=== PATIENT | male | born 1965 | race American Indian/Alaskan Native ===

== ENCOUNTER 2020-12-17 09:45 | Emergency (ER) | payer SELFPAY ==
--- NOTE | 2020-12-17 12:45 | Emergency Department Report ---
ED General Adult HPI - General Chief complaint: Abdominal Pain Stated complaint: ABD PAIN Time Seen by Provider: 12/17/20 12:35 Source: patient Mode of arrival: Ambulatory Limitations: No Limitations - History of Present Illness Initial comments: 55-year-old male patient with history of tobacco use and alcohol use presents to the emergency department with complaints of periumbilical abdominal pain for 3 weeks. Patient describes the pain as "cramping," intermittent, no identifiable exacerbating or relieving factors. Patient states that his appetite has been very poor. He endorses a 15 to 20 pound unintentional weight loss over the last 2 months. Patient has never undergone colonoscopy. He is not currently under the care of a primary care provider. He took a laxative earlier this week with limited relief. No prior abdominal surgeries. Denies fever, chills, nausea, vomiting, diarrhea, constipation, urinary symptoms. Denies other complaints at this time. - Related Data Previous Rx's Medication Instructions Recorded Last Taken Type Dicyclomine [Bentyl] 20 mg PO QID #30 tablet 12/17/20 Unknown Rx Allergies Allergy/AdvReac Type Severity Reaction Status Date / Time No Known Allergies Allergy Unverified 12/17/20 09:50 ED Review of Systems ROS: Stated complaint: ABD PAIN Other details as noted in HPI Other: GENERAL: Negative for fever, chills, weight change, anorexia, fatigue. ENT: Negative for ear pain, difficulty hearing, sore throat, nasal congestion, epistaxis. CARDIOVASCULAR: Negative for chest pain, palpitations, lower extremity swelling. PULMONARY: Negative for cough, dyspnea, wheezing, orthopnea, cyanosis. GASTROINTESTINAL: Positive for abdominal pain. MUSCULOSKELETAL: Negative for joint pain, joint swelling, myalgias, back pain, neck pain. NEUROLOGICAL: Negative for headache, seizure, syncope, paresthesias, weakness. INTEGUMENTARY: Negative for erythema, rash, diaphoresis, laceration, ecchymosis. HEMATOLOGICAL: Negative for hemoptysis, hematemesis, hematochezia, hematuria. PSYCHIATRIC: Negative for hallucinations, suicidal ideation, homicidal ideation, anxiety, depression. ED Past Medical Hx - Past Medical History Previous Medical History?: No - Surgical History Past Surgical History?: No - Medications Home Medications: Home Medications Medication Instructions Recorded Confirmed Last Taken Type Dicyclomine [Bentyl] 20 mg PO QID #30 tablet 12/17/20 Unknown Rx ED Physical Exam - General Limitations: No Limitations - Other Other exam information: General: Awake and alert. No acute distress. Head: Atraumatic, normocephalic. Eyes: EOMI. Pupils are equal and round. Normal sclera and conjunctiva. ENT: Oral mucosa is moist. Normal pharyngeal exam. Neck: Supple. No lymphadenopathy. Pulmonary: No respiratory distress. Clear to auscultation bilaterally. Cardiac: Regular rate and rhythm. Pulses are palpable and equal bilaterally. No lower extremity cyanosis or edema. Skin: Warm and dry. No rashes. Abdomen: Soft, non-tender, non-protuberant. Mild periumbilical tenderness without guarding, rigidity, or rebound. Bowel sounds are normal. No organomegaly or masses noted. Back: Normal alignment. No CVA tenderness. Extremities: Symmetrical. Full range of motion intact. Neurological: Alert and oriented, appropriately interactive, no focal deficits. Psych: Cooperative. Appropriate mood and affect. Speech is evenly metered. Thoughts are logically construed. ED Course Vital Signs 12/17/20 12/17/20 09:52 16:14 Temperature 98.4 F 98.5 F Pulse Rate 74 62 Respiratory 20 20 Rate Blood Pressure 147/84 189/87 O2 Sat by Pulse 100 100 Oximetry ED Medical Decision Making - Lab Data Result diagrams: 12/17/20 12:54 12/17/20 12:54 - Radiology Data [facility] [address] [place] [address] Cat Scan Report Signed Patient: RENETTA HANSEN MR#: [id number] : 1965 Acct:[id number] Age/Sex: 55 / M ADM Date: 12/17/20 Loc: ED Attending Dr: Ordering Physician: SANCHEZ HUERTA Date of Service: 12/17/20 Procedure(s): CT abdomen pelvis w con Accession Number(s): [id number] cc: SANCHEZ HUERTA CT ABDOMEN AND PELVIS WITH CONTRAST INDICATION: Abdominal pain, unintentional weight loss CONTRAST: 100 cc Omnipaque 300 IV COMPARISON: None available. All CT scans at this location are performed using CT dose reduction for ALARA by means of automated exposure control. FINDINGS: Lung bases are clear. No significant focal bony lesions are seen. No lymphadenopathy is noted. Liver shows mild fatty infiltration but is not significantly enlarged. No focal lesions are s een. I see no abnormalities of the spleen, adrenals, pancreas, kidneys, or bile ducts. Gallbladder is contracted but shows no obvious abnormalities. No evidence of bowel obstruction is seen. No bowel lesions are obvious. No focal inflammatory changes are seen. Appendix is clearly visualized. No masses are seen. IMPRESSION: No acute abnormalities are seen. No obvious neoplastic lesions are noted. Signer Name: Christopher Love MD Signed: 12/17/2020 3:23 PM Workstation Name: [id number] Transcribed By: ДМИТРИЙ Dictated By: Christopher Love MD Electronically Authenticated By: Christopher Love MD Signed Date/Time: 12/17/20 1523 DD/ 1518 TD/TT: - Medical Decision Making Differential diagnosis including but not limited to: abdominal aortic aneurysm/dissection, pancreatitis, cholecystitis, appendicitis, bowel obstruction, bowel perforation, diverticulitis, colon cancer On reevaluation, patient remains stable. States his abdominal pain has improved without intervention. Repeat abdominal exam is benign. He is afebrile, hemodynamically stable, tolerating p.o. without difficulty. Labs are unremarkable. CT of the abdomen/pelvis obtained due to patient's advanced age i n the setting of unintentional weight loss; imaging showed no acute process. Etiology of patient's ongoing abdominal pain remains unclear; no clinical indication for further diagnostic work-up on an emergent basis at this time. Patient will be discharged home with appropriate analgesics and referral to both primary care provider and gastroenterology. Emphasized the importance of scheduling outpatient colonoscopy, as patient has never undergone colon cancer screening. Patient expressed understanding and is agreeable to plan of care. Strict return precautions provided. Repeat exam is unremarkable and benign. History, exam, diagnostic testing, and current condition do not suggest worrisome pathology to warrant further testing, continued ED treatment, admission, or surgical evaluation at this point. Given the low probability of a significant medical illness, it would be more likely to result in harm than benefit to perform further testing at this stage. Discussed findings, presumptive diagnosis, need for follow-up and specific signs/symptoms that should prompt immediate return to the emergency department. Instructions were explained in detail to the patient in addition to giving written discharge information. Patient expressed understanding and was given the opportunity to ask questions, all of which were satisfactorily answered prior to discharge home. Critical care attestation.: If time is entered above; I have spent that time in minutes in the direct care of this critically ill patient, excluding procedure time. ED Disposition Clinical Impression: Nonspecific abdominal pain Disposition: DC- TO HOME OR SELFCARE Is pt being admited?: No Does the pt Need Aspirin: No Condition: Stable Instructions: Abdominal Pain, Adult, [place] Additional Instructions: Take Bentyl as directed for intestinal discomfort. Take Tylenol every 4 hours and Motrin every 8 hours as needed for pain. Rest. Drink plenty of fluids. Follow-up with primary care provider this week. Call tomorrow to schedule an appointment. See referral information below. Follow-up with gastroenterology for outpatient colonoscopy. Call tomorrow to schedule an appointment. See referral information below. Return to the emergency department immediately for new or worsening symptoms. Prescriptions: Dicyclomine [Bentyl] 20 mg PO QID #30 tablet Referrals: ASHLEY RECIO MD [Staff Physician] - 3-5 Days [facility] [Provider Group] - 3-5 Days [facility] [Provider Group] - 3-5 Days Forms: Work/School Release Form(ED) Time of Disposition: 15:48
[2020-12-17 13:33] LABS: Basophils # (Auto) 0.1 K/mm3 (0.0-0.1); Basophils % (Auto) 1.2 % (0.0-1.8); Eosinophils # (Auto) 0.1 K/mm3 (0.0-0.4); Eosinophils % (Auto) 1.7 % (0.0-4.3); Hematocrit 42.1 % (35.5-45.6); Hemoglobin 14.1 gm/dl (11.8-15.2); Lymphocytes # (Auto) 2.6 K/mm3 (1.2-5.4); Lymphocytes % (Auto) 43.7 % (13.4-35.0); Mean Corpuscular HGB Conc 34 % (32-34); Mean Corpuscular Volume 91 fl (84-94); Monocytes # (Auto) 0.5 K/mm3 (0.0-0.8); Monocytes % (Auto) 9.1 % (0.0-7.3); Platelet Count 216 K/mm3 (140-440); Red Blood Count 4.63 M/mm3 (3.65-5.03); Red Cell Distribution Width 13.8 % (13.2-15.2)
[2020-12-17 13:58] LABS: Alanine Aminotransferase 8 units/L (7-56); Albumin 3.9 g/dL (3.9-5); BUN/Creatinine Ratio 11; Blood Urea Nitrogen 11 mg/dL (9-20); Calcium 9.4 mg/dL (8.4-10.2); Hemolysis Index 8
--- NOTE | 2020-12-17 15:28 | Cat Scan Report ---
CT ABDOMEN AND PELVIS WITH CONTRAST INDICATION: Abdominal pain, unintentional weight loss CONTRAST: 100 cc Omnipaque 300 IV COMPARISON: None available. All CT scans at this location are performed using CT dose reduction for ALARA by means of automated e xposure control. FINDINGS: Lung bases are clear. No significant focal bony lesions are seen. No lymphadenopathy is not ed. Liver shows mild fatty infiltration but is not significantly enlarged. No focal lesions are seen. I see no abnormalities of the spleen, adrenals, pancreas, kidneys, or bile ducts. Gallbladder is con tracted but shows no obvious abnormalities. No evidence of bowel obstruction is seen. No bowel lesion s are obvious. No focal inflammatory changes are seen. Appendix is clearly visualized. No masses are seen. IMPRESSION: No acute abnormalities are seen. No obvious neoplastic lesions are noted. Signer Name: Christopher Love MD Signed: 12/17/2020 3:23 PM Workstation Name: [id number]
[2020-12-17 16:16] VITALS: BP 189/87
== END 2020-12-17 16:21 | disposition home or self-care (01) ==
LOC: ED 09:45
DX: R10.33 Periumbilical pain (principal); Z79.899 Other long term (current) drug therapy
CPT/HCPCS: 36415; 74177; 80053; 83690; 83735; 85025; 99284; Q9967

== ENCOUNTER 2021-01-21 09:01 | Emergency (ER) | payer SELFPAY ==
[2021-01-21 09:07] VITALS: BP 142/81
--- NOTE | 2021-01-21 10:22 | Emergency Department Report ---
ED Abdominal Pain HPI - General Chief Complaint: Abdominal Pain Stated Complaint: ABD PAIN Time Seen by Provider: 01/21/21 09:51 Source: patient Mode of arrival: Ambulatory Limitations: No Limitations - History of Present Illness Initial Comments: Chief complaint: Abdominal pain HPI: This is a 55-year-old male with history of tobacco and alcohol use who presents with abdominal pain for 2 to 3 months. Patient has a "crunchy abdominal pain right upper quadrant left upper quadrant and diffuse. Worse with beer intake. Worse with certain foods. He has had intermittent diarrhea constipation abdominal distention. He feels well this morning. He avoided alcohol last night. Patient was prescribed Bentyl on previous ED visit last month for similar symptoms. The Bentyl twice daily for 5 days did provide mild relief. He does not have a primary physician. I reviewed CT scan report obtained on 12/17/2020, no acute abnormality seen. MD Complaint: abdominal pain -: Gradual, month(s) (2 to 3 months prior) Location: diffuse Radiation: none Migration to: no migration Severity: mild Severity scale (0 -10): 4 Quality: cramping, sharp Consistency: intermittent Improves With: other (Alcohol avoidance) Worsens With: eating (Eating and beer intake) Associated Symptoms: other (Constipation diarrhea abdominal distention) - Related Data Previous Rx's Medication Instructions Recorded Last Taken Type Dicyclomine [Bentyl] 20 mg PO QID #30 tablet 12/17/20 Unknown Rx Dicyclomine [Bentyl] 20 mg PO QID #120 tablet 01/21/21 Unknown Rx Omeprazole 40 mg PO DAILY #30 capsule. 01/21/21 Unknown Rx Allergies Allergy/AdvReac Type Severity Reaction Status Date / Time No Known Allergies Allergy Unverified 12/17/20 09:50 ED Review of Systems ROS: Stated complaint: ABD PAIN Other details as noted in HPI Comment: All other systems reviewed and negative Respiratory: denies: cough Cardiovascular: denies: palpitations Gastrointestinal: abdominal pain, diarrhea, constipation ED Past Medical Hx - Past Medical History Previous Medical History?: No - Surgical History Past Surgical History?: No - Family History Family history: hypertension - Social History Smoking Status: Current Every Day Smoker Substance Use Type: Alcohol - Medications Home Medications: Home Medications Medication Instructions Recorded Confirmed Last Taken Type Dicyclomine [Bentyl] 20 mg PO QID #30 tablet 12/17/20 Unknown Rx Dicyclomine [Bentyl] 20 mg PO QID #120 tablet 01/21/21 Unknown Rx Omeprazole 40 mg PO DAILY #30 capsule. 01/21/21 Unknown Rx ED Physical Exam - General Limitations: No Limitations General appearance: alert, in no apparent distress, other (Well-appearing pleasant comfortable nontoxic) - Head Head exam: Present: atraumatic, normocephalic - Eye Eye exam: Present: normal appearance - ENT ENT exam: Present: mucous membranes moist - Neck Neck exam: Present: normal inspection - Respiratory Respiratory exam: Present: normal lung sounds bilaterally. Absent: respiratory distress - Cardiovascular Cardiovascular Exam: Present: regular rate, normal rhythm. Absent: systolic murmur, diastolic murmur, rubs, gallop - GI/Abdominal GI/Abdominal exam: Present: soft, normal bowel sounds. Absent: distended, tenderness, guarding, rebound - Rectal Rectal exam: Present: deferred - Extremities Exam Extremities exam: Present: normal inspection - Neurological Exam Neurological exam: Present: alert, oriented X3 - Psychiatric Psychiatric exam: Present: normal affect, normal mood - Skin Skin exam: Present: warm, dry, intact, normal color. Absent: rash ED Course Vital Signs 01/21/21 09:06 Temperature 98.1 F Pulse Rate 74 Respiratory 18 Rate Blood Pressure 142/81 [Right] O2 Sat by Pulse 100 Oximetry ED Medical Decision Making - Medical Decision Making Clinical impression: Peptic ulcer disease, irritable bowel syndrome. Prescribed 30-day course of omeprazole as well as Bentyl. Strongly encouraged follow-up with outpatient medicine physician. I strongly recommended colonoscopy and prostate cancer screenings. Critical care attestation.: If time is entered above; I have spent that time in minutes in the direct care of this critically ill patient, excluding procedure time. ED Disposition Clinical Impression: Irritable bowel syndrome, Peptic ulcer disease Disposition: -01 TO HOME OR SELFCARE Is pt being admited?: No Does the pt Need Aspirin: No Condition: Stable Instructions: Peptic Ulcer, Blou-pa-Hcyt, Irritable Bowel Syndrome, Adult, Peptic Ulcer Eating Plan Prescriptions: Dicyclomine [Bentyl] 20 mg PO QID #120 tablet Omeprazole 40 mg PO DAILY #30 capsule. Referrals: ASHLEY RECIO MD [Staff Physician] - 3-5 Days
== END 2021-01-21 10:37 | disposition home or self-care (01) ==
LOC: ED 09:01
DX: K58.9 Irritable bowel syndrome, unspecified (principal); K27.9 Peptic ulcer, site unspecified, unspecified as acute or chronic, without hemorrhage or perforation; F17.200 Nicotine dependence, unspecified, uncomplicated; Z79.899 Other long term (current) drug therapy
CPT/HCPCS: 99281